=== PATIENT | male | born 1975 | race Two or more races ===

== ENCOUNTER 2017-01-16 03:43 | Emergency (ER) | payer OTHER ==
[~2017-01-16] VITALS: Ht 180.3 cm; Wt 92.0 kg
[2017-01-16 03:48] VITALS: Ht 180.3 cm; Wt 92.0 kg
--- NOTE | 2017-01-16 06:26 | ERD ---
ER Documentation Chief Complaint Date/Time DATE: 01/16/17 TIME: 06:23 Chief Complaint c/o cough x 7 months. (+) 2 packs per day smoker. HPI 41 year old male presents to the emergency department complaining of cough for 7 months. Patient admits to having intermittent mild chest pain with deep inhalation for 7months. Patient states he has been evaluated by a clinic in [place] couple months ago in which they have given him allergy medication, patient states he finished meds and still coughing. He denies fever, abdominal pain, hemoptysis. He smokes 2 packs cigs per day ROS All systems reviewed and are negative except as per history of present illness. Medications Home Meds Active Scripts Omeprazole* (Omeprazole*) 20 Mg Capsule.dr, 20 MG PO DAILY, #10 Prov:BERNICE PURCELL PA-C 01/16/17 Loratadine* (Claritin*) 10 Mg Tablet, 10 MG PO DAILY, #20 TAB Prov:BERNICE PURCELL PA-C 01/16/17 Fluticasone Propionate (Flonase Allergy Relief) 9.9 Ml [place].susp, 1 SPRAY NASAL BID, #1 BOTTLE TO EACH NOSTRIL Prov:BERNICE PURCELL PA-C 01/16/17 Benzonatate* (Tessalon Perle*) 100 Mg Capsule, 100 MG PO Q8H Y for COUGH, #20 CAP Prov:BERNICE PURCELL PA-C 01/16/17 PMhx/Soc Medical and Surgical Hx: pt denies Medical Hx, pt denies Surgical Hx Hx Alcohol Use: Yes Hx Substance Use: Yes (THC) Hx Tobacco Use: Yes Smoking Status: Current every day smoker Physical Exam Vitals Vital Signs Date Time Temp Pulse Resp B/P Pulse Ox O2 Delivery O2 Flow Rate FiO2 01/16/17 07:01 98.5 77 18 138/74 99 Room Air 01/16/17 03:48 97.8 82 20 163/84 97 Physical Exam Const: WD/WN Head: Atraumatic Eyes: Normal Conjunctiva ENT: Normal External Ears, Nose and Mouth. Neck: Full range of motion..~ No meningismus. Resp: Clear to auscultation bilaterally Cardio: Regular rate and rhythm, no murmurs Abd: Soft, non tender, non distended. Normal bowel sounds Skin: No petechiae or rashes Back: No midline or flank tenderness Ext: No cyanosis, or edema Neur: Awake and alert Psych: Normal Mood and Affect Procedures/MDM 41 year old male presents to the ED complaining of chronic cough and intermittent chest wall tenderness due to cough for 7 months. Patient is well- appearing, has stable vital signs and appropriate to be discharged home to follow up with her primary care physician. Low suspicion of ACS, pulmonary embolism. CXR did not show any evidence of infiltrates, pneumothorax, pleural effusion. EKG: read and signed off by myself and Rate/Rhythm: Normal Sinus Rhythm 81 bpm QRS, ST, T-waves: Normal intervals, no changes consistent w/ acute ischemia Impression: No STEMI Patient was given Tessalon Perles, Claritin, Flonase and omeprazole for possible cough related to chronic allergies or gastritis Departure Diagnosis: Primary Impression: Cough Condition: Stable Patient Instructions: Cough, Chronic, Uncertain Cause, (Adult) Referrals: DOCTOR,NOT ON STAFF (PCP) Additional Instructions: FOLLOW UP WITH YOUR PRIMARY CARE PHYSICIAN TOMORROW.Return to this facility if you are not improving as expected. Take all medicines as directed. Return to this facility if you are not improving as expected. BERNICE PURCELL PA-C Jan 16, 2017 06:26
--- NOTE | 2017-01-16 06:48 | RADRPT ---
PROCEDURE: XR Chest. CLINICAL INDICATION: Cough TECHNIQUE: A single AP view of the chest was obtained. COMPARISON: None. FINDINGS: No focal airspace opacification, pleural effusion or pneumothorax is seen. The cardiomediastinal si lhouette is within normal limits for size. The osseous structures are unremarkable. IMPRESSION: Unremarkable chest x-ray. RPTAT: HH .Kacie Butler MD, MD Date Time Electronically viewed and signed by .Kacie Butler MD, on 01/16/2017 06:47 .G/
[2017-01-16] MEDS ORDERED: BENZ100C70 PO (06:54)
[2017-01-16] MEDS ORDERED: LORA-186 PO (06:54)
[2017-01-16] MEDS ORDERED: FLUT9.9S NASAL (06:54)
[2017-01-16] MEDS ORDERED: OMEP20CA16 PO (06:55)
[2017-01-16 07:01] VITALS: BP 138/74; PULSE 77; RESP 18; TEMP 98.5
== END 2017-01-16 08:00 | disposition home or self-care (01) ==
LOC: FTE 03:43
DX: R05 Cough (principal); F17.210 Nicotine dependence, cigarettes, uncomplicated; R07.9 Chest pain, unspecified
CPT/HCPCS: 71010; 93005